=== PATIENT | female | born 1955 | race Caucasian/White ===

== ENCOUNTER → 2017-11-16 13:58 | Outpatient (CLI) | payer OTHER | END | disposition home or self-care (01) | LOC: D.RAD 10-01 08:45 | DX: M25.551 Pain in right hip (principal) ==

== ENCOUNTER → 2018-01-14 10:26 | Outpatient (CLI) | payer OTHER | END | disposition home or self-care (01) | LOC: D.US 10:26 | DX: M79.605 Pain in left leg (principal) ==

== ENCOUNTER → 2018-05-11 10:21 | Outpatient (CLI) | payer BC | END | disposition home or self-care (01) | LOC: D.RAD 10:21 | DX: M54.6 Pain in thoracic spine (principal); M54.2 Cervicalgia; M54.5 Low back pain ==

== ENCOUNTER → 2019-02-01 17:46 | Outpatient (CLI) | payer OTHER | END | disposition home or self-care (01) | LOC: D.MAMMO 01-07 13:30 | PROVIDERS: ATTEND Legal Medicine | DX: Z12.31 Encounter for screening mammogram for malignant neoplasm of breast (principal) ==

== ENCOUNTER → 2019-02-17 13:11 | Outpatient (CLI) | payer OTHER | END | disposition home or self-care (01) | LOC: D.US 13:11 | PROVIDERS: ATTEND Emergency Medicine | DX: I10 Essential (primary) hypertension (principal); I73.9 Peripheral vascular disease, unspecified; F17.200 Nicotine dependence, unspecified, uncomplicated ==

== ENCOUNTER → 2020-03-02 11:37 | Outpatient (CLI) | payer OTHER | END | disposition home or self-care (01) | LOC: D.US 11:37 → D.MRI 15:00 → D.US 15:00 | PROVIDERS: ATTEND Emergency Medicine | DX: I73.9 Peripheral vascular disease, unspecified (principal) ==